=== PATIENT | female | born 1975 | race Caucasian/White ===

== ENCOUNTER 2018-04-20 22:47 | Emergency (ER) | payer OTHER ==
[~2018-04-20] VITALS: Ht 162.6 cm; Wt 72.2 kg
[2018-04-20 22:53] VITALS: Ht 162.6 cm; Wt 72.2 kg
[2018-04-20 23:57] LABS: BASOPHIL % 0.6 % (0-2); PLATELET COUNT 378 x10^3mcL (130-400)
[2018-04-21 00:05] LABS: CALCIUM 8.5 mg/dL (8.5-10.1); CARBON DIOXIDE 27.7 mmol/L (21-32); CHLORIDE SERUM 104 mmol/L (98-107); CREATININE SERUM 0.8 mg/dL (0.6-1.0); GFR1 > 60 mL/min; GLUCOSE SERUM 103 mg/dL (74-106); POTASSIUM SERUM 3.7 mmol/L (3.5-5.1); SODIUM SERUM 140 mmol/L (136-145)
[2018-04-21 00:10] LABS: ALBUMIN 3.6 g/dL (3.4-5.0); ALKALINE PHOSPHATASE 73 U/L (46-116); ALT/SGPT 23 U/L (14-59); AMYLASE 55 U/L (25-115); AST/SGOT 18 U/L (15-37); BILIRUBIN TOTAL 0.2 mg/dL (0.20-1.00); LIPASE 142 IU/L (73-393); TOTAL PROTEIN, SERUM 7.3 g/dL (6.4-8.2)
[2018-04-21 00:11] LABS: RED CELL DISTRIBUTION WIDTH 22.4 % (11.5-14.5)
[2018-04-21 00:24] LABS: rbc morphology (normal/abnorm) ABNORMAL (NORMAL)
[2018-04-21 00:25] LABS: ovalocyte/elliptocyte 1+
[2018-04-21 01:10] VITALS: BP 118/74
== END 2018-04-21 01:10 | disposition home or self-care (01) ==
LOC: ED 22:47
PROVIDERS: Emergency Medicine
DX: G43.909 Migraine, unspecified, not intractable, without status migrainosus (principal); R11.2 Nausea with vomiting, unspecified
CPT/HCPCS: J1200; J1885; J2765; J7030

== ENCOUNTER 2019-07-17 21:43 | Inpatient (IN) | payer OTHER ==
[~2019-07-17] VITALS: Ht 165.1 cm; Wt 77.1 kg
[2019-07-17 22:01] VITALS: Ht 165.1 cm; Wt 77.1 kg
[2019-07-17 23:38] LABS: BASOPHIL % 0.8 % (0-2)
[2019-07-17 23:39] LABS: PLATELET COUNT 518 x10^3mcL (130-400); RED CELL DISTRIBUTION WIDTH 20.1 % (11.5-14.5)
[2019-07-17 23:51] LABS: rbc morphology (normal/abnorm) ABNORMAL (NORMAL)
[2019-07-17 23:52] LABS: ovalocyte/elliptocyte 1+; tear drop cell (dacryocyte) 1+
[2019-07-18] MEDS ORDERED: FEOSOL65 M1 PO (00:17)
[2019-07-18 00:38] LABS: CALCIUM 7.9 mg/dL (8.5-10.1); CARBON DIOXIDE 23.2 mmol/L (21-32); CHLORIDE SERUM 109 mmol/L (98-107); CREATININE SERUM 0.6 mg/dL (0.6-1.0); GFR1 > 60 mL/min; GLUCOSE SERUM 126 mg/dL (74-106); POTASSIUM SERUM 3.2 mmol/L (3.5-5.1); SODIUM SERUM 142 mmol/L (136-145)
[2019-07-18 00:42] LABS: ALKALINE PHOSPHATASE 95 U/L (46-116); ALT/SGPT 37 U/L (14-59); AST/SGOT 30 U/L (15-37); BILIRUBIN TOTAL 0.21 mg/dL (0.20-1.00); TOTAL PROTEIN, SERUM 6.8 g/dL (6.4-8.2)
[2019-07-18 00:48] LABS: ALBUMIN 3.2 g/dL (3.4-5.0)
[2019-07-18] MEDS ORDERED: CLARITIN LIQUI-10 MG PO (01:02)
[2019-07-18 02:02] LABS: CHOLESTEROL/HDL RATIO 3.4; MAGNESIUM 2.1 mg/dL (1.8-2.4)
[2019-07-18 02:45] VITALS: BP 130/78
[2019-07-18 03:58] LABS: microscopic required? YES
[2019-07-18 03:59] LABS: urine erythrocyte NEGATIVE (NEGATIVE)
[2019-07-18 04:46] LABS: AMPHETAMINE QUAL UR NONE DETECTED (See below)
[2019-07-18 05:47] VITALS: BP 113/64
[2019-07-18 06:05] LABS: BASOPHIL % 0.8 % (0-2)
[2019-07-18 06:07] LABS: PLATELET COUNT 453 x10^3mcL (130-400); RED CELL DISTRIBUTION WIDTH 22.3 % (11.5-14.5)
[2019-07-18 06:15] LABS: RED BLOOD CELLS 4.59 M/mm3 (4.10-5.10)
[2019-07-18 06:26] LABS: T3 TOTAL 1.2 ng/mL
[2019-07-18 06:55] LABS: IRON 96 ug/dL (50-170)
[2019-07-18 06:56] LABS: TOTAL IRON BINDING CAPACITY 455 ug/dL (250-450)
[2019-07-18 07:04] LABS: CALCIUM 7.8 mg/dL (8.5-10.1); CARBON DIOXIDE 24.5 mmol/L (21-32); CHLORIDE SERUM 109 mmol/L (98-107); CREATININE SERUM 0.5 mg/dL (0.6-1.0); GFR1 > 60 mL/min; GLUCOSE SERUM 106 mg/dL (74-106); PHOSPHOROUS 3.1 mg/dL (2.5-4.9); POTASSIUM SERUM 4.3 mmol/L (3.5-5.1); SODIUM SERUM 140 mmol/L (136-145)
[2019-07-18 07:43] LABS: FREE T4 0.95 ng/dL (0.76-1.46); FREE THYROXINE INDEX 2.6 ug/dL (1.4-4.5); T4(THYROXINE) 8.1 ug/dL (4.7-13.3)
[2019-07-18 08:38] VITALS: BP 132/72
[2019-07-18 13:47] VITALS: BP 125/70
[2019-07-18 17:43] VITALS: BP 136/80
[2019-07-18 21:07] VITALS: BP 135/82
[2019-07-19 05:15] VITALS: BP 108/60
[2019-07-19 07:04] LABS: CALCIUM 8.3 mg/dL (8.5-10.1); CARBON DIOXIDE 24.2 mmol/L (21-32); CHLORIDE SERUM 107 mmol/L (98-107); CREATININE SERUM 0.6 mg/dL (0.6-1.0); GFR1 > 60 mL/min; GLUCOSE SERUM 99 mg/dL (74-106); POTASSIUM SERUM 3.8 mmol/L (3.5-5.1); SODIUM SERUM 139 mmol/L (136-145)
[2019-07-19 07:54] VITALS: BP 144/92
[2019-07-19 09:41] LABS: PLATELET COUNT 485 x10^3mcL (130-400); RED CELL DISTRIBUTION WIDTH 21.6 % (11.5-14.5)
[2019-07-19] MEDS ORDERED: MECLIZINE HCL12.5 MG PO (10:53)
[2019-07-19] MEDS ORDERED: FER300 PO (10:53)
[2019-07-19 11:41] VITALS: BP 131/82
[2019-07-19 12:45] LABS: rbc morphology (normal/abnorm) ABNORMAL (NORMAL)
[2019-07-19 12:47] LABS: ovalocyte/elliptocyte 1+; schistocyte (helmet cell) 1+; tear drop cell (dacryocyte) 1+
== END 2019-07-19 16:44 | disposition home or self-care (01) | DRG 663 ==
LOC: ED 21:43 → DU 07-18 00:35
PROVIDERS: ADMIT Internal Medicine
PROC: 30233N1 Transfusion of Nonautologous Red Blood Cells into Peripheral Vein, Percutaneous Approach (ICD-10-PCS; principal; 2019-07-18)
DX: D50.9 Iron deficiency anemia, unspecified (principal); E44.0 Moderate protein-calorie malnutrition; E83.51 Hypocalcemia; G90.8 Other disorders of autonomic nervous system; D47.3 Essential (hemorrhagic) thrombocythemia; E87.6 Hypokalemia; G43.909 Migraine, unspecified, not intractable, without status migrainosus; Z68.28 Body mass index [BMI] 28.0-28.9, adult
CPT/HCPCS: 83880; 84439; G0378; J1750; J1885; J2916; J7030; J7050; P9016; Q0092